=== PATIENT | male | born 2000 | race Two or more races ===

== ENCOUNTER 2020-05-10 09:45 | Emergency (ER) | payer OTHER ==
[~2020-05-10] VITALS: Ht 180.3 cm; Wt 104.5 kg
[2020-05-10 09:48] VITALS: BP 134/69
[2020-05-10] MEDS ORDERED: DEXAMETHASONE 4 MG TABLET ONE (10:07)
[2020-05-10] MEDS ORDERED: IBUPROFEN 200 MG TABLET ONE (10:11)
[2020-05-10] MEDS ORDERED: IBUPROFEN 800 MG TABLET PO ONE (10:30)
[2020-05-10] MEDS ORDERED: DEXAMETHASONE 4 MG TABLET PO ONE (10:30)
== END 2020-05-10 11:23 | disposition home or self-care (01) ==
LOC: ED 10:27
DX: J02.0 Streptococcal pharyngitis (principal); R50.9 Fever, unspecified
CPT/HCPCS: 87081; 87147; 87880; 99283